=== PATIENT | male | born 1965 | race Two or more races ===

== ENCOUNTER 2019-12-05 08:20 | Outpatient (CLI) | payer SELFPAY | END 2019-12-05 23:59 | disposition home or self-care (01) | LOC: WOU 08:20 | PROVIDERS: ATTEND Podiatrist Foot & Ankle Surgery | DX: L84 Corns and callosities (principal); M20.41 Other hammer toe(s) (acquired), right foot; M79.674 Pain in right toe(s) | CPT/HCPCS: G0463 ==